=== PATIENT | female | born 1955 | race Caucasian/White ===

== ENCOUNTER → 2017-10-26 | Outpatient (CLI) | payer MEDICARE ==
[2017-10-26 08:51] LABS: Blood Urea Nitrogen 16 mg/dL (7-17)
--- NOTE | 2017-10-26 14:54 | MR ---
EXAMINATION TYPE: MR cervical spine wo/w con DATE OF EXAM: 10/26/2017 COMPARISON: CT cervical spine 02/03/2017 HISTORY: Cervicalgia, Paresthesia of skin TECHNIQUE: Multiplanar, multisequence images of the cervical spine were acquired utilizing 6.5 mL intravenous Ga davist gadolinium contrast. Diffusion weighted imaging was performed. C2-C3: No evidence for degenerative disc disease. No disc bulge/herniation or protrusion. No Canal stenosis. Foramina are patent bilaterally. Question some mild intrinsic central cord abnormal signal in T2-weighted images. C3-C4: There is some myelomalacia change within the cord bilaterally which is somewhat more extensive than the more inferior focus. Bilateral foraminal encroachment is present. No significant central st enosis. Disc space is not present. C4-C5: Mild right-sided foraminal encroachment. No significant central stenosis. C5-C6: There is bilateral foraminal encroachment, no significant central stenosis or evident disc her niation. Disc space is absent. C6-C7: There is some mild neural foraminal encroachment on the left, disc spaces are obliterated, no significant spinal stenosis. Question some posterior myelomalacia changes, increased signal bilateral ly. C7-T1: No evidence for degenerative disc disease. No disc bulge/herniation or protrusion. No Canal stenosis. Foramina are patent bilaterally. Cervical segments are intact. There is normal alignment. Craniovertebral junction relationships are within normal limits. Patient is status post anterior cervical fusion and discectomy at C3-4, C5-6- 7 and there is susceptibility artifact due to patient's indwelling hardware. No abnormal enhancement following contrast administration. IMPRESSION: Multilevel myelomalacia as described. Postop changes. Multi level foraminal encroachment. No signific ant central stenosis or evident disc herniation.
== END ==
LOC: RADMRIMAIN 08:16
PROVIDERS: ATTEND Physical Medicine & Rehabilitation
DX: G95.89 Other specified diseases of spinal cord (principal)
CPT/HCPCS: 82565; 84520; 72156; A9581

== ENCOUNTER → 2024-03-20 | Outpatient (CLI) | payer MEDICARE ==
--- NOTE | 2024-03-22 21:40 | BD ---
EXAMINATION TYPE: Axial Bone Density DATE OF EXAM: 03/20/2024 CLINICAL HISTORY: 68 years old Female. ICD-10 CODE: Z78.0 Postmenopausal , Z78.0 Height: 58.5 in Weight: 143 lbs FRAX RISK QUESTIONS: Secondary Osteoporosis: 3. Menopause before 45: partial hysterectomy age 34 Current Tobacco Use: yes EXAM MEASUREMENTS: Bone mineral densitometry was performed using the [employer] System. Bone mineral density as measured about the Lumbar spine is: ----- L1-L4(G/cm2): 0.957 T Score Values are as follows: ----- L1: -1.4 ----- L2: -2.0 ----- L3: -2.6 ----- L4: -1.6 ----- L1-L4: -1.9 Z Score Values are as follows: ----- L1: 0.2 ----- L2: -0.4 ----- L3: -1.0 ----- L4: 0.0 ----- L1-L4: -0.2 Bone mineral density baseline Bone mineral density about the R hip (g/cm2): 0.897 Bone mineral density about the L hip (g/cm2): 0.917 T Score values are as follows: -----R Neck: -1.8 -----L Neck: -1.6 -----R Total: -0.9 -----L Total: -0.7 Z Score values are as follows: -----R Neck: -0.3 -----L Neck: -0.1 -----R Total: 0.4 -----L Total: 0.6 Bone mineral density baseline FRAX%s: The graph provided illustrates a 10.4% chance for a major osteoporotic fx and a 2.4% chance f or the hips probability for fx in 10 years time. IMPRESSION: Osteopenia (T Score between -2.5 and -1). There is slightly increased risk of fracture and the patient may be considered for treatment. Re-Screen 2-5 years. NOTE: T-SCORE=SD OF THE YOUNG ADULT MEAN. [facility], , 03/22/2024 9:37 PM
== END | disposition home or self-care (01) ==
LOC: RADBDWWP 08:12
PROVIDERS: ATTEND Family Medicine
DX: M85.89 Other specified disorders of bone density and structure, multiple sites (principal); Z78.0 Asymptomatic menopausal state
CPT/HCPCS: 77080

== ENCOUNTER → 2024-04-04 | Outpatient (CLI) | payer MEDICARE ==
--- NOTE | 2024-04-04 13:11 | XR ---
EXAMINATION TYPE: XR ankle complete RT DATE OF EXAM: 04/04/2024 12:04 PM COMPARISON: None CLINICAL INDICATION: Female, 68 years old with history of M25.571 G89.29 CHRONIC PAIN RH ANKLE; PH[facility] TECHNIQUE: XR ankle complete RT; ankle is imaged in frontal, lateral and oblique projections. FINDINGS: There is no evidence of acute osseous pathology. No evidence of subluxation or dislocation. Kager's fat pad is intact. Mild soft tissue swelling around the ankle. No radiopaque foreign bodies are ident ified. Mild degeneration changes of the ankle with osteophyte formation and joint space narrowing. IMPRESSION: 1. No evidence of acute fracture. 2. Soft tissue swelling around the lateral malleolus correlate for injury. 3. Mild degeneration changes of the ankle joint. [facility], , 04/04/2024 1:08 PM
== END | disposition home or self-care (01) ==
LOC: RADXRMAIN 11:28
PROVIDERS: ATTEND Family Medicine
DX: M19.071 Primary osteoarthritis, right ankle and foot (principal)